=== PATIENT | male | born 1995 | race Caucasian/White ===

== ENCOUNTER → 2021-11-12 15:43 | Outpatient (BNVA) | payer OTHER, SELFPAY | PROVIDERS: Family Provider Nurse Practitioner; PCP Nurse Practitioner; Visit Provider Nurse Practitioner | DX: U07.1 COVID-19 (principal) | CPT/HCPCS: 87635 ==

== ENCOUNTER 2021-11-13 07:28 | Outpatient (CLI) | payer OTHER, SELFPAY ==
[2021-11-13 08:05] VITALS: BP 128/85; PULSE 80; RESP 20; TEMP 36.6; O2SAT 98
[2021-11-13 08:21] VITALS: BMI 27.1
[2021-11-13 08:55] VITALS: BP 124/81; PULSE 70; RESP 19; TEMP 36.6; O2SAT 98
[2021-11-13 09:31] VITALS: BP 124/82; PULSE 72; RESP 20; TEMP 36.4; O2SAT 98
== END 2021-11-13 07:29 | disposition home or self-care (01) ==
LOC: OPS 07:33
PROVIDERS: PCP Nurse Practitioner; Visit Provider Nurse Practitioner
DX: U07.1 COVID-19 (principal)
CPT/HCPCS: 96365